=== PATIENT | female | born 1940 | race Caucasian/White ===

== ENCOUNTER 2019-02-04 02:00 | Observation (INO) | payer MEDICARE, OTHER ==
--- NOTE | 2019-02-04 02:20 | ED ---
Skin/Abscess/FB HPI - General Chief complaint: Skin/Abscess/Foreign Body Stated complaint: Transfer From [facility] Time Seen by Provider: 02/04/19 02:06 Source: patient Mode of arrival: ambulatory Limitations: no limitations - History of Present Illness Initial comments: Patient is a pleasant 78-year-old female presents the emergency department today as a transfer from an outside facility for evaluation of left hand cellulitis. Patient was evaluated earlier in the week at an urgent care for infection of her left fourth digit, at that time that was read she was prescribed Bactrim and topical feel B [place] ointment. Patient has been compliant with treatment regimen however she's noticed progressively worsening redness and pain. Today she sought care at an outside emergency department where she was noted to have cellulitis of the finger with range of motion limited by pain, patient was given a small dose of vancomycin however due to her poor renal function the infusion was discontinued and the patient was given a dose of Ancef. At that time they did note that the redness in her finger did seem to be improving however due to the failure of outpatient oral antibiotics decision was made to admit the patient. Upon discussion with the admitting team they decided the patient needed be evaluated a facility that had a hand surgeon the patient was socially transferred to our facility for further evaluation. - Related Data Allergies Allergy/AdvReac Type Severity Reaction Status Date / Time iodine Allergy Anaphylaxis Verified 02/04/19 02:12 Penicillins Allergy Rash/Hives Verified 02/04/19 02:12 sulfamethoxazole AdvReac Nausea Verified 02/04/19 02:12 [From Bactrim] trimethoprim [From Bactrim] AdvReac Nausea Verified 02/04/19 02:12 Review of Systems ROS Statement: Those systems with pertinent positive or pertinent negative responses have been documented in the HPI. ROS Other: All systems not noted in ROS Statement are negative. Past Medical History Past Medical History: No Reported History, Renal Disease History of Any Multi-Drug Resistant Organisms: None Reported Past Surgical History: Appendectomy, Coronary Bypass/CABG, Heart Catheterization With Stent, Tubal Ligation Additional Past Surgical History / Comment(s): right rotator cuff. Past Psychological History: No Psychological Hx Reported Smoking Status: Never smoker Past Alcohol Use History: None Reported Past Drug Use History: None Reported General Exam - General Exam Comments Initial Comments: Physical Exam GENERAL: Patient is well-developed and well-nourished. Patient is nontoxic and well- hydrated and is in no distress. HENT: Normocephalic, Atraumatic. EYES: PERRL, EOMI PULMONARY: Unlabored respirations. No audible rales rhonchi or wheezing was noted. CARDIOVASCULAR: There is a regular rate and rhythm without any murmurs gallops or rubs. ABDOMEN: Soft and nontender with normal bowel sounds. SKIN: Left fourth digit with erythema extending from the tip of the finger to the MCP. There was an attempted drainage of possible felon at outside hospital there is a small incision which is bandaged with some dark venous bleeding noted : Deferred NEUROLOGIC: Hard of hearing Alert and oriented MUSCULOSKELETAL: Normal extremities with adequate strength and full range of motion. No lower extremity swelling or edema. No calf tenderness. PSYCHIATRIC: Normal psychiatric evaluation. Limitations: no limitations Limitations: no limitations Course Vital Signs 02/04/19 02:05 Temperature 98.5 F Pulse Rate 104 H Respiratory 20 Rate Blood Pressure 93/53 O2 Sat by Pulse 98 Oximetry Medical Decision Making - Medical Decision Making Patient care was discussed with the transferring physician prior to transfer, patient care was then discussed with our on-call orthopedics physician Dr. Hazel cotto who agreed that we can accept the admission and he will evaluate the patient Repeat labs were ordered At this time I will plan to admit the patient with a consult to hand surgery as well as infectious disease for further evaluation patient's agreeable to this plan - Lab Data Result diagrams: 02/04/19 02:42 02/04/19 02:42 Disposition Clinical Impression: Cellulitis of left hand Disposition: ADMITTED IP TO THIS HOSP Condition: Stable
[2019-02-04 03:00] LABS: Basophils % (A) 0 %; Eosinophils # (A) 0.1 k/uL (0-0.7); Eosinophils % (A) 1 %; HCT 31.8 % (34.0-46.0); HGB 10.6 gm/dL (11.4-16.0); Lymphocytes # (A) 1.2 k/uL (1.0-4.8); Lymphocytes % (A) 12 %; MCHC 33.2 g/dL (31.0-37.0); MCV 93.3 fL (80.0-100.0); Mean Platelet Volume 8.3; Monocytes # (A) 1.6 k/uL (0-1.0); Monocytes % (A) 16 %; Neutrophils # (A) 6.7 k/uL (1.3-7.7); Neutrophils % (A) 68 %; Platelet Count 133 k/uL (150-450); RBC 3.41 m/uL (3.80-5.40); RDW 13.9 % (11.5-15.5); WBC 9.8 k/uL (3.8-10.6)
[2019-02-04 03:04] LABS: Albumin 3.9 g/dL (3.5-5.0); Calcium 9.5 mg/dL (8.4-10.2); Potassium 3.9 mmol/L (3.5-5.1); Total Bilirubin 0.7 mg/dL (0.2-1.3); Total Protein 6.5 g/dL (6.3-8.2)
[2019-02-04] MEDS: SODIUM CHLORIDE 0.9% 1,000 ML IV SCH ×2 (03:36→15:27)
[2019-02-04] MEDS: ACETAMINOPHEN TAB 325 MG TAB PO PRN ×2 (04:18→22:08)
[2019-02-04 07:39] LABS: Glucose,Whole Blood 101 mg/dL (75-99)
--- NOTE | 2019-02-04 08:00 | P.CNOR ---
History of Present Illness - [facility] Consult date: 02/04/19 Consult reason: other (cellulitis - left 4th digit) History of present illness: The patient is a pleasant 78-year-old right-hand dominant female who was transferred from [facility] for evaluation of redness and swelling in her left ring finger. She states this has been gradually worsening over the past 4 days. She denies any injury or inciting events. She does not bite her nails. She was initially treated with oral and topical antibiotics. When this failed to show improvement, she was sent to the emergency department. She was given a dose of IV vancomycin but apparently stopped due to poor renal function. She states the redness was worse but has improved since receiving the antibiotics. She has a history of insulin-dependent diabetes and states her morning blood sugars average around 100. She denies fevers, chills or recent systemic illness. She does not smoke. Past Medical History Past Medical History: Diabetes Mellitus, Hearing Disorder / Deafness, Hyperlipidemia, Myocardial Infarction ([place]), Osteoarthritis (OA), Renal Disease, Thyroid Disorder Additional Past Medical History / Comment(s): Pace maker, type 2 , speech disturbance Last Myocardial Infarction Date:: unknown History of Any Multi-Drug Resistant Organisms: None Reported Past Surgical History: Appendectomy, Coronary Bypass/CABG, Heart Catheterization With Stent, Tubal Ligation Additional Past Surgical History / Comment(s): right rotator cuff. Past Anesthesia/Blood Transfusion Reactions: Previous Problems w/ Anesthesia Additional Past Anesthesia/Blood Transfusion Reaction / Comm: Patient was told she can't have anesthesia becuase of her heart Date of Last Stent Placement:: 2011 Past Psychological History: No Psychological Hx Reported Smoking Status: Never smoker Past Alcohol Use History: None Reported Past Drug Use History: None Reported - Past Family History Father Family Medical History: Diabetes Mellitus Additional Family Medical History / Comment(s): type 2 Mother Additional Family Medical History / Comment(s): Stroke Medications and Allergies Allergies Allergy/AdvReac Type Severity Reaction Status Date / Time iodine Allergy Anaphylaxis Verified 02/04/19 02:12 Penicillins Allergy Rash/Hives Verified 02/04/19 02:12 sulfamethoxazole AdvReac Nausea Verified 02/04/19 02:12 [From Bactrim] trimethoprim [From Bactrim] AdvReac Nausea Verified 02/04/19 02:12 Physical Examination Left hand: There is marked erythema on the dorsal aspect of the ring finger extending mcfp up the middle phalanx. There is purulence noted beneath the eponychial fold, more so on the ulnar aspect. No purulence is seen beneath the nail plate. There is no active drainage. A small wound is noted on the radial side of the eponychial fold, likely from the reported attempted ID from the outside hospital. There is no tenderness to palpation in the pulp or along the flexor sheath. She is able to actively flex and extend the digit without difficulty or signs of pain. Results - Labs Labs: Abnormal Lab Results - Last 24 Hours (Table) 02/04/19 02/04/19 02/04/19 Range/Units 02:42 02:42 07:38 RBC 3.41 L (3.80-5.40) m/uL Hgb 10.6 L (11.4-16.0) gm/dL Hct 31.8 L (34.0-46.0) % Plt Count 133 L (150-450) k/uL Monocytes # 1.6 H (0-1.0) k/uL BUN 44 H (7-17) mg/dL Creatinine 3.02 H (0.52-1.04) mg/dL POC Glucose (mg/dL) 101 H (75-99) mg/dL H & H 02/04/19 Range/Units 02:42 Hgb 10.6 L (11.4-16.0) gm/dL Hct 31.8 L (34.0-46.0) % Result Diagrams: 02/04/19 02:42 02/04/19 02:42 Assessment and Plan Assessment: This is 78-year-old [id number] female with a four-day history of left ring finger pain, redness and swelling 1. Eponychia - left ring finger 2. 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 I recommended starting her on IV clindamycin and begin soaks with warm saline several times a day. We will plan for a bedside I&D early this afternoon. The patient should remain NPO until then to retain the option to proceed with formal operative I&D if necessary. The patient expressed understanding and agreement with this plan. Thank you for allowing me to participate in the care of this patient. Champ Meléndez D.O. [facility]
[2019-02-04] MEDS ORDERED: LIDOCAINE 1% INJ 10MG/ML (20 ML MDV) SQ ONE (09:23)
[2019-02-04] MEDS: traMADol 50 MG TAB PO PRN ×3 (09:27→22:03)
[2019-02-04] MEDS: CLINDAMYCIN 600 MG in DEXTROSE 5% IN WATER 50 ML IVPB SCH ×4 (09:28→15:26)
--- NOTE | 2019-02-04 10:08 | P.CONS ---
History of Present Illness - Reason for Consult Consult date: 02/04/19 Hand cellulitis - History of Present Illness This is an 78-year-old female with a gives history of waking up one morning and having redness and edema to the left ring finger at the nail bed. This eventually progressed on his finger into the hand. She went to a clinic in [place] and was placed on Bactrim and Bactroban. She took 2 doses of Bactrim and did not have any improvement with worsening of the redness and edema and went to [facility] emergency center. She was started on vancomycin and given Ancef and then transferred to [facility] for further treatment. Patient has been seen by Dr. Meléndez and is scheduled for I&D this afternoon. He has ordered clindamycin and warm saline soaks. Patient presented with normal white count of 9.8, hemoglobin 10.6, BUN 44 and creatinine 3.0 to, blood sugar 133. Patient does have known renal disease. Blood cultures status received. Patient states that she is diabetic and her blood sugars in the morning usually run around 100. Patient does not have a speech difficulty which she states she has had since . Review of Systems All systems: negative Constitutional: Denies anorexia, Denies chills, Denies fever, Denies malaise, Denies poor appetite, Denies weakness Eyes: denies blurred vision, denies pain Ears, nose, mouth and throat: Denies dental pain, Denies headache, Denies mouth pain, Denies nasal congestion, Denies nasal discharge, Denies sore throat Cardiovascular: Denies chest pain, Denies dyspnea on exertion, Denies edema, Denies lightheadedness, Denies orthopnea, Denies shortness of breath, Denies syncope Respiratory: Denies cough, Denies cough with sputum, Denies dyspnea, Denies excessive sputum, Denies hemoptysis, Denies home oxygen, Denies respiratory infections Gastrointestinal: Denies abdominal pain, Denies diarrhea, Denies loss of appetite, Denies melena, Denies nausea, Denies vomiting Genitourinary: Denies difficulty voiding, Denies dysuria, Denies hematuria, Denies urinary frequency Musculoskeletal: Denies frequent falls, Denies gait dysfunction, Denies myalgias Integumentary: Reports color changes, Reports darkening of skin, Reports wounds, Denies pruritus, Denies rash Neurological: Denies aphasia, Denies change in mentation, Denies confusion, Denies head injury, Denies headaches, Denies numbness, Denies seizures, Denies vertigo, Denies weakness Psychiatric: Denies anxiety, Denies depression Endocrine: Denies fatigue, Denies weight change Past Medical History Past Medical History: Diabetes Mellitus, Hearing Disorder / Deafness, Hyperlipidemia, Myocardial Infarction ([place]), Osteoarthritis (OA), Renal Disease, Thyroid Disorder Additional Past Medical History / Comment(s): Pace maker, type 2 , speech disturbance Last Myocardial Infarction Date:: unknown History of Any Multi-Drug Resistant Organisms: None Reported Past Surgical History: Appendectomy, Coronary Bypass/CABG, Heart Catheterization With Stent, Tubal Ligation Additional Past Surgical History / Comment(s): right rotator cuff. Past Anesthesia/Blood Transfusion Reactions: Previous Problems w/ Anesthesia Additional Past Anesthesia/Blood Transfusion Reaction / Comm: Patient was told she can't have anesthesia becuase of her heart Date of Last Stent Placement:: 2011 Past Psychological History: No Psychological Hx Reported Smoking Status: Never smoker Past Alcohol Use History: None Reported Additional Past Alcohol Use History / Comment(s): The patient is a lifelong nonsmoker. She denies any marijuana or illicit drug use. She denies any alcohol use. She lives at home with her daughter and son-in-law. There are 4 dogs in the home. She denies any recent travel. She denies any hobbies using her hands. Past Drug Use History: None Reported - Past Family History Father Family Medical History: Diabetes Mellitus Additional Family Medical History / Comment(s): type 2 Mother Additional Family Medical History / Comment(s): Stroke Medications and Allergies Home Medications Medication Instructions Recorded Confirmed Type Atorvastatin [Lipitor] 80 mg PO HS 02/04/19 02/04/19 History Clopidogrel Bisulfate [Plavix] 75 mg PO DAILY 02/04/19 02/04/19 History Furosemide [Lasix] 20 mg PO BID 02/04/19 02/04/19 History Insulin Detemir [Levemir Flextouch] 30 unit SQ BID 02/04/19 02/04/19 History Levothyroxine Sodium [Synthroid] 112 mcg PO DAILY 02/04/19 02/04/19 History Linagliptin [Tradjenta] 5 mg PO DAILY 02/04/19 02/04/19 History Metoprolol Tartrate [Lopressor] 100 mg PO BID 02/04/19 02/04/19 History Midodrine HCl [ProAmantine] 2.5 mg PO TID 02/04/19 02/04/19 History Moxifloxacin HCl 400 mg PO DAILY #10 tab 02/04/19 Rx Potassium Chloride ER [K-Dur 10] 10 meq PO BID 02/04/19 02/04/19 History Allergies Allergy/AdvReac Type Severity Reaction Status Date / Time iodine Allergy Anaphylaxis Verified 02/04/19 10:16 Penicillins Allergy Rash/Hives Verified 02/04/19 10:16 sulfamethoxazole AdvReac Nausea Verified 02/04/19 10:16 [From Bactrim] trimethoprim [From Bactrim] AdvReac Nausea Verified 02/04/19 10:16 Physical Exam Vitals: Vital Signs Temp Pulse Pulse Resp BP BP BP 02/04/19 07:00 98.1 F 88 17 125/62 02/04/19 04:33 98.6 F 88 20 126/74 02/04/19 03:40 98.8 F 102 H 16 109/68 02/04/19 02:05 98.5 F 104 H 20 93/53 Pulse Ox 02/04/19 07:00 96 02/04/19 04:33 97 02/04/19 03:40 97 02/04/19 02:05 98 Intake and Output 02/03/19 02/04/19 02/04/19 22:59 06:59 14:59 Intake Total 150 Balance 150 Intake: Intake, IV Titration 150 Amount Sodium Chloride 0.9% 1, 150 000 ml @ 75 mls/hr IV . [id number] [facility] Rx#:[id number] Other: # Voids 1 Weight 86.183 kg Gen: This is an 78-year-old female. She is resting in bed and appears comfortable and in no acute distress. HEENT: Head is atraumatic, normocephalic. Pupils equal, round. Sclerae is anicteric. Conjunctiva pink. Mucous members of the mouth are slightly dry. Dentition is in poor order for age. No thrush noted. NECK: Supple. No JVD. No lymphadenopathy. No thyromegaly. LUNGS: Clear to auscultation. No wheezes or rhonchi. No intercostal retractions. HEART: Regular rate and rhythm. No murmur. ABDOMEN: Soft. Bowel sounds are present. No masses. No tenderness. EXTREMITIES: No pedal edema. No calf tenderness. Dorsalis pedis +2 bilaterally. To the left ring finger. There is significant erythema on the dorsal aspect extending from the tip to the middle phalanx. There is purulence at the nail bed with erythema around the nail bed. No drainage noted. No foul odor. NEUROLOGICAL: Patient is awake, alert and oriented x3. Cranial nerves 2 through 12 are grossly intact. Results Results: Laboratory Results WBC 9.8 k/uL (3.8-10.6) 02/04/19 02:42 RBC 3.41 m/uL (3.80-5.40) L 02/04/19 02:42 Hgb 10.6 gm/dL (11.4-16.0) L 02/04/19 02:42 Hct 31.8 % (34.0-46.0) L 02/04/19 02:42 MCV 93.3 fL (80.0-100.0) 02/04/19 02:42 MCH 31.0 pg (25.0-35.0) 02/04/19 02:42 MCHC 33.2 g/dL (31.0-37.0) 02/04/19 02:42 RDW 13.9 % (11.5-15.5) 02/04/19 02:42 Plt Count 133 k/uL (150-450) L 02/04/19 02:42 Neutrophils % 68 % 02/04/19 02:42 Lymphocytes % 12 % 02/04/19 02:42 Monocytes % 16 % 02/04/19 02:42 Eosinophils % 1 % 02/04/19 02:42 Basophils % 0 % 02/04/19 02:42 Neutrophils # 6.7 k/uL (1.3-7.7) 02/04/19 02:42 Lymphocytes # 1.2 k/uL (1.0-4.8) 02/04/19 02:42 Monocytes # 1.6 k/uL (0-1.0) H 02/04/19 02:42 Eosinophils # 0.1 k/uL (0-0.7) 02/04/19 02:42 Basophils # 0.0 k/uL (0-0.2) 02/04/19 02:42 Sodium 140 mmol/L (137-145) 02/04/19 02:42 Potassium 3.9 mmol/L (3.5-5.1) 02/04/19 02:42 Chloride 104 mmol/L (98-107) 02/04/19 02:42 Carbon Dioxide 25 mmol/L (22-30) 02/04/19 02:42 Anion Gap 11 mmol/L 02/04/19 02:42 BUN 44 mg/dL (7-17) H 02/04/19 02:42 Creatinine 3.02 mg/dL (0.52-1.04) H 02/04/19 02:42 Est GFR (CKD-EPI)AfAm 16 (>60 ml/min/1.73 sqM) 02/04/19 02:42 Est GFR (CKD-EPI)NonAf 14 (>60 ml/min/1.73 sqM) 02/04/19 02:42 Glucose 96 mg/dL (74-99) 02/04/19 02:42 POC Glucose (mg/dL) 101 mg/dL (75-99) H 02/04/19 07:38 POC Glu Extension Forester ID Nakul Rodrigueza 02/04/19 07:38 Calcium 9.5 mg/dL (8.4-10.2) 02/04/19 02:42 Total Bilirubin 0.7 mg/dL (0.2-1.3) 02/04/19 02:42 AST 17 U/L (14-36) 02/04/19 02:42 ALT 24 U/L (9-52) 02/04/19 02:42 Alkaline Phosphatase 125 U/L (38-126) 02/04/19 02:42 Total Protein 6.5 g/dL (6.3-8.2) 02/04/19 02:42 Albumin 3.9 g/dL (3.5-5.0) 02/04/19 02:42 CBC & Chem 7: 02/04/19 02:42 02/04/19 02:42 Labs: Abnormal Lab Results - Last 24 Hours (Table) 02/04/19 02/04/19 02/04/19 Range/Units 02:42 02:42 07:38 RBC 3.41 L (3.80-5.40) m/uL Hgb 10.6 L (11.4-16.0) gm/dL Hct 31.8 L (34.0-46.0) % Plt Count 133 L (150-450) k/uL Monocytes # 1.6 H (0-1.0) k/uL BUN 44 H (7-17) mg/dL Creatinine 3.02 H (0.52-1.04) mg/dL POC Glucose (mg/dL) 101 H (75-99) mg/dL Assessment and Plan Plan: This is an 78-year-old female who presents to the hospital with eponychia. Patient is currently on clindamycin and Rocephin will be added for gram-negative coverage. Blood cultures status received. Patient is scheduled for I&D this afternoon and hopefully cultures will be obtained at that time which will help with antibiotic choices. Continue supportive care. Further recommendations as patient progresses. The above dictated assessment and findings were discussed with Dr. Castaneda. The impression and plan of care have been directed as dictated. Sadie Dickey nurse practitioner acting as scribe for Dr. Castaneda.
[2019-02-04 11:06] LABS: Glucose,Whole Blood 118 mg/dL (75-99)
[2019-02-04] MEDS: INSULIN ASPART (NovoLOG) 100 UNIT/ML VIAL SQ SCH ×3 (11:41→21:17)
--- NOTE | 2019-02-04 13:00 | P.HPIM ---
History of Present Illness This is a pleasant 78 years old female with past medical history of diabetes mellitus, hearing disorder, hyperlipidemia, coronary artery disease status post pacemaker , osteoarthritis, hypothyroidism,. She is a patient of Dr. Drummond. Patient presents because of left ring finger cellulitis of 4 days duration. Patient has creatinine of 3.0, as per patient and family at bedside patient has a stage IV CKD and she follow up with patient information coordinator that appear , Also she has chronic shoulder arthralgia and she sees a specialist for injection therapy however he is off and she has appointment in 3 weeks. However patient denies chest pain or dyspnea. No fever.On admissions Vitas looks stable. Patient is afebrile. CBC and BMP were reviewed showing mild anemia with 10.6, creatinine of 3.0 and unknown baseline.She's been evaluated by orthopedic and plan for I and D today afternoon Review of Systems CONSTITUTIONAL: No fever, no malaise, no fatigue. HEENT: No recent visual problems or hearing problems. Denied any sore throat. CARDIOVASCULAR: No orthopnea, PND, no palpitations, no syncope. PULMONARY: No shortness of breath, no cough, no hemoptysis. GASTROINTESTINAL: No diarrhea, no nausea, no vomiting, no abdominal pain. Normoactive bowel sounds. NEUROLOGICAL: No headaches, no weakness, no numbness. HEMATOLOGICAL: Denies any bleeding or petechiae. GENITOURINARY: Denies any burning micturition, frequency, or urgency. MUSCULOSKELETAL/RHEUMATOLOGICAL: Denies any joint pain, swelling, or any muscle pain. ENDOCRINE: Denies any polyuria or polydipsia. Past Medical History Past Medical History: Diabetes Mellitus, Hearing Disorder / Deafness, Hy perlipidemia, Myocardial Infarction (ND), Osteoarthritis (OA), Renal Disease, Thyroid Disorder Additional Past Medical History / Comment(s): Pace maker, type 2 , speech distur bance Last Myocardial Infarction Date:: unknown History of Any Multi-Drug Resistant Organisms: None Reported Past Surgical History: Appendectomy, Coronary Bypass/CABG, Heart Catheterization With Stent, Tubal Ligation Additional Past Surgical History / Comment(s): right rotator cuff. Past Anesthesia/Blood Transfusion Reactions: Previous Problems w/ Anesthesia Additional Past Anesthesia/Blood Transfusion Reaction / Comment(s): Patient was told she can't have anesthesia becuase of her heart Date of Last Stent Placement:: 2011 Past Psychological History: No Psychological Hx Reported Smoking Status: Never smoker Past Alcohol Use History: None Reported Additional Past Alcohol Use History / Comment(s): The patient is a lifelong nonsmoker. She denies any marijuana or illicit drug use. She denies any alcohol use. She lives at home with her daughter and son-in-law. There are 4 dogs in the home. She denies any recent travel. She denies any hobbies using her hands. Past Drug Use History: None Reported - Past Family History Father Family Medical History: Diabetes Mellitus Additional Family Medical History / Comment(s): type 2 Mother Additional Family Medical History / Comment(s): Stroke Medications and Allergies Home Medications Medication Instructions Recorded Confirmed Type Atorvastatin [Lipitor] 80 mg PO HS 02/04/19 02/04/19 History Clopidogrel Bisulfate [Plavix] 75 mg PO DAILY 02/04/19 02/04/19 History Furosemide [Lasix] 20 mg PO BID 02/04/19 02/04/19 History Insulin Detemir [Levemir Flextouch] 30 unit SQ BID 02/04/19 02/04/19 History Levothyroxine Sodium [Synthroid] 112 mcg PO DAILY 02/04/19 02/04/19 History Linagliptin [Tradjenta] 5 mg PO DAILY 02/04/19 02/04/19 History Metoprolol Tartrate [Lopressor] 100 mg PO BID 02/04/19 02/04/19 History Midodrine HCl [ProAmantine] 2.5 mg PO TID 02/04/19 02/04/19 History Potassium Chloride ER [K-Dur 10] 10 meq PO BID 02/04/19 02/04/19 History Allergies Allergy/AdvReac Type Severity Reaction Status Date / Time iodine Allergy Anaphylaxis Verified 02/04/19 10:16 Penicillins Allergy Rash/Hives Verified 02/04/19 10:16 sulfamethoxazole AdvReac Nausea Verified 02/04/19 10:16 [From Bactrim] trimethoprim [From Bactrim] AdvReac Nausea Verified 02/04/19 10:16 Physical Exam Vitals: Vital Signs Temp Pulse Pulse Resp BP BP BP 02/04/19 07:00 98.1 F 88 17 125/62 02/04/19 04:33 98.6 F 88 20 126/74 02/04/19 03:40 98.8 F 102 H 16 109/68 02/04/19 02:05 98.5 F 104 H 20 93/53 Pulse Ox 02/04/19 07:00 96 02/04/19 04:33 97 02/04/19 03:40 97 02/04/19 02:05 98 Intake and Output 02/03/19 02/04/19 02/04/19 22:59 06:59 14:59 Intake Total 150 Balance 150 Intake: Intake, IV Titration 150 Amount Sodium Chloride 0.9% 1, 150 000 ml @ 75 mls/hr IV . [id number] [facility] Rx#:[id number] Other: Voiding Method Toilet # Voids 1 Weight 86.183 kg GENERAL: The patient is alert and oriented x3, not in any acute distress. Well developed, well nourished. HEENT: Pupils are round and equally reacting to light. EOMI. No scleral icterus. No conjunctival pallor. Normocephalic, atraumatic. No pharyngeal erythema. No thyromegaly. CARDIOVASCULAR: S1 and S2 present. No murmurs, rubs, or gallops. PULMONARY: Chest is clear to auscultation, no wheezing or crackles. ABDOMEN: Soft, nontender, nondistended, normoactive bowel sounds. No palpable organomegaly. MUSCULOSKELETAL: No joint swelling or deformity. -EXTREMITIES: No cyanosis, clubbing, or pedal edema. Left little finger is swollen, red and tender in the distal half of it. With this pronounced in the proximal half NEUROLOGICAL: Gross neurological examination did not reveal any focal deficits. SKIN: No rashes. Results CBC & Chem 7: 02/04/19 02:42 02/04/19 02:42 Labs: Abnormal Lab Results - Last 24 Hours (Table) 02/04/19 02/04/19 02/04/19 Range/Units 02:42 02:42 07:38 RBC 3.41 L (3.80-5.40) m/uL Hgb 10.6 L (11.4-16.0) gm/dL Hct 31.8 L (34.0-46.0) % Plt Count 133 L (150-450) k/uL Monocytes # 1.6 H (0-1.0) k/uL BUN 44 H (7-17) mg/dL Creatinine 3.02 H (0.52-1.04) mg/dL POC Glucose (mg/dL) 101 H (75-99) mg/dL 02/04/19 Range/Units 11:05 RBC (3.80-5.40) m/uL Hgb (11.4-16.0) gm/dL Hct (34.0-46.0) % Plt Count (150-450) k/uL Monocytes # (0-1.0) k/uL BUN (7-17) mg/dL Creatinine (0.52-1.04) mg/dL POC Glucose (mg/dL) 118 H (75-99) mg/dL Thrombosis Risk Factor Assmnt - Choose All That Apply Any of the Below Risk Factors Present?: Yes Each Risk Factor Represents 3 Points: Age 75 years or older Thrombosis Risk Factor Assessment Total Risk Factor Score: 3 Thrombosis Risk Factor Assessment Level: Moderate Risk Assessment and Plan Assessment: Left ring finger cellulitis. chronic kidney disease, stage IV Diabetes mellitus History of hearing difficulty Hyperlipidemia History of coronary artery disease status post pacemaker history of osteoarthritis, and shoulder pain. She follow up with specialist outpatient Hypothyroidism Plan: This is a pleasant 6 years old female who presents with left ring finger cellulitis. Continue with antibiotics. Orthopedic consult is appreciated. Plan for I and D today. Give the patient nothing by mouth with IV fluids for now. Labs and medication were reviewed.. Continue same treatment. Continue with symptomatic treatment. Resume home medication. Monitor vitals. DVT and GI prophylaxis. Further recommendations of the clinical course of the patient DVT prophylaxis: Subcutaneous heparin GI Prophylaxis: pepcid
--- NOTE | 2019-02-04 14:19 | P.PCN ---
Date of Procedure: 02/04/19 Preoperative Diagnosis: Left ring finger eponychia Postoperative Diagnosis: Left ring finger eponychia Procedure(s) Performed: Incision and drainage of left ring finger eponychia Anesthesia: local Surgeon: Champ Meléndez Estimated Blood Loss (ml): 2 Pathology: other (Aerobic and anaerobic culture swabs) Condition: stable Indications for Procedure: Patient is an 78-year-old female who failed outpatient treatment of an infection of her left ring finger. She was diagnosed with an acute eponychia. Treatment options were discussed and surgical debridement was recommended in the form of a bedside I&D. Risks and benefits were reviewed with the patient. She expressed understanding and agreement and wished to proceed with the procedure. Operative Findings: ~1cc of thick pus expressed from under the eponychial fold Description of Procedure: After informed consent obtained, a time out was performed which confirmed the patient, the procedural site and procedure to be performed. All team members expressed agreement. The left ring finger was prepped with alcohol and 10 mL of 1% lidocaine without epinephrine were injected in a digital block. The left ring finger was prepped with chlorhexidine. Sterile gloves and instruments were used in conjuction with aseptic technique. An 11 blade scalpel was used to incise the skin on the ulnar corner of the eponychial fold. The incision was opened with a mosquito hemostat. Creamy, white purulent fluid was immediately encountered. This was manually expressed from the wound. The dorsal skin over the distal phalanx was milked until no further fluid was expressed. The subcutaneous tissues were bluntly explored with a hemostat and no pockets of purulent fluid were identified. A similar incision was made on the radial corner of the eponychial fold. No purulence was identified. The central portion of the eponychium was gently elevated off the nail plate. No purulent fluid was encountered. The incisions were left open to drain. Good hemostasis was obtained with pressure. An Adaptic was placed in the eponychial incisions to prevent premature closure. A sterile dressing of 4 x 4's and gauze was applied. The patient tolerated the procedure well. We will begin soaks twice a day and a solution of warm normal saline and dilute peroxide (10:1 ratio). Sterile dressings should be reapplied after the soaks. Finger care, activity and follow up instructions were given.
[2019-02-04] MEDS: MIDODRINE 5 MG TAB PO SCH ×2 (15:26→22:09)
[2019-02-04 17:11] LABS: Glucose,Whole Blood 101 mg/dL (75-99)
[2019-02-04] MEDS: FUROSEMIDE 20 MG TAB PO SCH (17:20)
--- NOTE | 2019-02-04 18:38 | P.CON ---
Consult Note - . Consult date: 02/04/19 Assessment/Plan:: This is an 78-year-old female with a gives history of waking up one morning and having redness and edema to the left ring finger at the nail bed. This eventually progressed on his finger into the hand. She went to a clinic in [place] and was placed on Bactrim and Bactroban. She took 2 doses of Bactrim and did not have any improvement with worsening of the redness and edema and went to [facility] emergency center. She was started on vancomycin and given Ancef and then transferred to [facility] for further treatment. Patient has been seen by Dr. Meléndez and is scheduled for I&D this afternoon. He has ordered clindamycin and warm saline soaks. Patient presented with normal white count of 9.8, hemoglobin 10.6, BUN 44 and creatinine 3.0 to, blood sugar 133. Patient does have known renal disease. Blood cultures status received. Patient states that she is diabetic and her blood sugars in the morning usually run around 100. Patient does not have a speech difficulty which she states she has had since . Please see the consult note as dictated by nurse practitioner Mrs. Sadie Dickey. This pleasant 78-year-old woman is noted to have the acute difficulty with the left hand fourth finger at the nail bed. There is noted she's been seen by orthopedic surgery and will have an incision and drainage of this site. There appears to be the infection of the space about the nail which will be incised and drained. Given the acuity this is likely a superficial infection with incision and drainage should do well. However it's often polymicrobial in nature and will add Rocephin to the clindamycin. It is likely she'll be discharged home tomorrow, moxifloxacin 40 mg once a day dispense center pharmacy for follow-up. Local wound care is as per the orthopedic surgeon. Local dressing should be applied. The hand should be elevated while she is at rest. Hopefully once the nerve block wears off she will not have severe pain, and will be addressed before her discharge tomorrow. I agree with the evaluation, assessment and plan as dictated by nurse practitioner Mrs. Sadie Dickey.
[2019-02-04 20:26] LABS: Glucose,Whole Blood 150 mg/dL (75-99)
[2019-02-04] MEDS ORDERED: ATORVASTATIN 80 MG TAB PO SCH (21:00)
[2019-02-04] MEDS: INSULIN DETEMIR (LEVEMIR) 100 UNIT/ML SYR SQ SCH (21:17)
[2019-02-04] MEDS: FAMOTIDINE 20 MG/2 ML VIAL IV SCH (22:09)
[2019-02-04] MEDS: METOPROLOL TARTRATE 50 MG TAB PO SCH (22:09)
[2019-02-04] MEDS: POTASSIUM CHLORIDE ER 10 MEQ TAB.ER.PRT PO SCH (22:09)
[2019-02-05] MEDS: CLINDAMYCIN 600 MG in DEXTROSE 5% IN WATER 50 ML IVPB SCH ×4 (01:03→11:06)
[2019-02-05] MEDS: traMADol 50 MG TAB PO PRN ×2 (03:53→13:32)
[2019-02-05] MEDS ORDERED: LEVOTHYROXINE 112 MCG TAB PO SCH (06:30)
[2019-02-05 07:15] LABS: Glucose,Whole Blood 56 mg/dL (75-99)
[2019-02-05 07:40] LABS: Glucose,Whole Blood 65 mg/dL (75-99)
[2019-02-05 08:11] LABS: Glucose,Whole Blood 78 mg/dL (75-99)
[2019-02-05 08:19] VITALS: RESP 17
[2019-02-05] MEDS ORDERED: CLOPIDOGREL 75 MG TAB PO SCH (09:00)
[2019-02-05] MEDS ORDERED: HEPARIN SODIUM,PORCINE 5,000 UNIT/ML 1 ML VIAL SQ SCH (09:00)
[2019-02-05] MEDS: SODIUM CHLORIDE 0.9% 1,000 ML IV SCH (09:51)
[2019-02-05] MEDS: INSULIN ASPART (NovoLOG) 100 UNIT/ML VIAL SQ SCH ×2 (09:51→13:26)
[2019-02-05] MEDS: INSULIN DETEMIR (LEVEMIR) 100 UNIT/ML SYR SQ SCH (09:53)
[2019-02-05] MEDS: METOPROLOL TARTRATE 50 MG TAB PO SCH (09:54)
[2019-02-05] MEDS: MIDODRINE 5 MG TAB PO SCH (09:54)
[2019-02-05] MEDS: POTASSIUM CHLORIDE ER 10 MEQ TAB.ER.PRT PO SCH (09:54)
[2019-02-05] MEDS: FUROSEMIDE 20 MG TAB PO SCH (09:54)
[2019-02-05] MEDS: FAMOTIDINE 20 MG/2 ML VIAL IV SCH (09:55)
--- NOTE | 2019-02-05 10:00 | P.PN ---
Subjective Progress Note Date: 02/05/19 This is an 78-year-old female who is admitted for infection of her left ring finger. Patient is status post bedside I&D. This is postoperative day #1. Patient states that her pain is well-controlled and she denies any new complaints. Patient denies any fever/chills, numbness, weakness, tingling, abdominal pain, shortness of breath or chest pain. Objective - Vital Signs Vital signs: Vital Signs Temp 99.2 F 02/05/19 07:00 Pulse 79 02/05/19 07:00 Resp 17 02/05/19 07:00 BP 115/72 02/05/19 07:00 Pulse Ox 100 02/05/19 07:00 Intake & Output 02/04/19 02/05/19 02/05/19 18:59 06:59 18:59 Intake Total 120 Balance 120 Intake: Oral 120 Other: Voiding Method Toilet # Voids 2 1 - Exam On exam patient is resting comfortably in bed in no acute distress. Dressing is removed revealing a moderate amount of bloody drainage. Incisions are open and draining a mild amount of sanguineous fluid. Sensation is intact. Neurovascular status and circulatory status are intact. - Labs CBC & Chem 7: 02/04/19 02:42 02/04/19 02:42 Labs: Abnormal Lab Results - Last 24 Hours (Table) 02/04/19 02/04/19 02/04/19 Range/Units 11:05 17:10 20:24 POC Glucose (mg/dL) 118 H 101 H 150 H (75-99) mg/dL 02/05/19 02/05/19 Range/Units 07:04 07:29 POC Glucose (mg/dL) 56 L 65 L (75-99) mg/dL Microbiology - Last 24 Hours (Table) 02/04/19 14:30 Gram Stain - Preliminary Finger - Left Fourth Wound Culture - Preliminary 02/04/19 02:42 Blood Culture - Preliminary Blood No Growth after 24 hours 02/04/19 14:30 Anaerobic Culture - Preliminary Finger - Left Fourth Assessment and Plan (1) Cellulitis of left hand Current Visit: Yes Status: Acute Code(s): L03.114 - CELLULITIS OF LEFT UPPER LIMB SNOMED Code(s): 71475664 (2) Eponychia Current Visit: Yes Status: Acute Code(s): 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 Continue warm soaks twice daily with dressing changes after each soak. 2. Cultures are pending. 3. Antibiotics per infectious disease. 4. Will continue to follow. Patient is clear for discharge from an orthopedic standpoint once antibiotics are determined.
[2019-02-05 12:01] LABS: Glucose,Whole Blood 162 mg/dL (75-99)
[2019-02-05 15:34] VITALS: BP 94/63; PULSE 64; TEMP 98.8
--- NOTE | 2019-02-05 16:57 | P.DS ---
Providers Date of admission: 02/04/19 02:20 Expected date of discharge: 02/05/19 Attending physician: Frederick Ingram MD Consults: 02/04/19 02:07 Consult Physician Urgent Consulting Provider: Champ Meléndez Consult Reason/Comments: hand cellulitis Do you want consulting provider notified?: Already Contacted 02/04/19 02:08 Consult Physician Urgent Consulting Provider: Dank Castaneda Consult Reason/Comments: hand cellulitis Do you want consulting provider notified?: Yes, Notify in am Primary care physician: [facility] Course: Ms. Suarez is an 78-year-old female with a past medical history of diabetes mellitus, hearing disorder, hyperlipidemia, coronary artery disease status pacemaker, osteoarthritis, hypothyroidism coming in with a chief complaint of l eft ring finger pain and swelling for 4 days. Patient was found to have abscess and cellulitis of the left ring finger and orthopedic surgery was consulted. Patient had I&D done on 02/04/2019. She has been started on IV antibiotics in the form of ceftriaxone and clindamycin by ID Dr. Castaneda. This morning patient was sitting comfortably in the bed has no active complaints. Patient states that her pain is well controlled and the swelling and redness have decreased compared to yesterday. Patient denies having any fevers chills or rigors. No shortness of breath or chest pain. No dysuria or hematuria. No abdominal pain nausea vomiting or diarrhea. Patient's vital signs Vital Signs Temp 99.2 F 02/05/19 07:00 Pulse 79 02/05/19 07:00 Resp 17 02/05/19 07:00 BP 115/72 02/05/19 07:00 Pulse Ox 100 02/05/19 07:00 Intake & Output 02/04/19 02/05/19 02/05/19 18:59 06:59 18:59 Intake Total 120 Balance 120 Intake: Oral 120 Other: Voiding Method Toilet # Voids 2 1 On examination: GENERAL: The patient is alert and oriented x3, not in any acute distress. Well developed, well nourished. HEENT: Pupils are round and equally reacting to light. EOMI. No scleral icterus. No conjunctival pallor. Normocephalic, atraumatic. No pharyngeal erythema. No thyromegaly. CARDIOVASCULAR: S1 and S2 present. No murmurs, rubs, or gallops. PULMONARY: Chest is clear to auscultation, no wheezing or crackles. ABDOMEN: Soft, nontender, nondistended, normoactive bowel sounds. No palpable organomegaly. MUSCULOSKELETAL: No joint swelling or deformity. -EXTREMITIES: The marked area of redness of the left ring finger appears to be normal today. The ring finger is wrapped in a guage. NEUROLOGICAL: Gross neurological examination did not reveal any focal deficits. SKIN: No rashes. DISCHARGE DIAGNOSIS Left ring finger cellulitis. chronic kidney disease, stage IV Diabetes mellitus History of hearing difficulty Hyperlipidemia History of coronary artery disease status post pacemaker History of osteoarthritis, and shoulder pain. Hypothyroidism PLAN: Patient is status post op day1- s/p I&D of the left ring finger abscess. As per ID Dr. Castaneda recommendations she can be discharged on moxifloxacin and she has also been cleared by orthopedic surgery to be discharged home. Patient's daughter at the bedside and discussed in detail regarding the importance of completing the antibiotic course and also explained to her about the wound care for her abscess. She is advised to follow-up with her primary care physician in 2-3 days and also orthopedic surgery in 1 week. Patient is being discharged home in a stable condition. More than 30 minutes spent towards the discharge of the patient. Patient Condition at Discharge: Stable Plan - Discharge Summary Discharge Rx Participant: Yes New Discharge Prescriptions: New Moxifloxacin HCl 400 mg PO DAILY #10 tab No Action Potassium Chloride ER [K-Dur 10] 10 meq PO BID Midodrine HCl [ProAmantine] 2.5 mg PO TID Metoprolol Tartrate [Lopressor] 100 mg PO BID Linagliptin [Tradjenta] 5 mg PO DAILY Levothyroxine Sodium [Synthroid] 112 mcg PO DAILY Insulin Detemir [Levemir Flextouch] 30 unit SQ BID Furosemide [Lasix] 20 mg PO BID Clopidogrel Bisulfate [Plavix] 75 mg PO DAILY Atorvastatin [Lipitor] 80 mg PO HS Discharge Medication List Atorvastatin [Lipitor] 80 mg PO HS 02/04/19 [History] Clopidogrel Bisulfate [Plavix] 75 mg PO DAILY 02/04/19 [History] Furosemide [Lasix] 20 mg PO BID 02/04/19 [History] Insulin Detemir [Levemir Flextouch] 30 unit SQ BID 02/04/19 [History] Levothyroxine Sodium [Synthroid] 112 mcg PO DAILY 02/04/19 [History] Linagliptin [Tradjenta] 5 mg PO DAILY 02/04/19 [History] Metoprolol Tartrate [Lopressor] 100 mg PO BID 02/04/19 [History] Midodrine HCl [ProAmantine] 2.5 mg PO TID 02/04/19 [History] Moxifloxacin HCl 400 mg PO DAILY #10 tab 02/04/19 [Rx] Potassium Chloride ER [K-Dur 10] 10 meq PO BID 02/04/19 [History] Follow up Appointment(s)/Referral(s): Bhanu Hernandez MD [Primary Care Provider] - 1-2 days Champ Meléndez DO [Medical Doctor] - 1 Week Activity/Diet/Wound Care/Special Instructions: Orthopedic Discharge Instructions Soak left ring finger twice a day for 5-10 minutes in solution of warm normal saline (or clean warm water) and peroxide (less than 25% peroxide). Ok to wash hands normally with soap & water. Keep covered with a dressing or band-aid. No salves/ointments/lotions. No neosporin or bacitracin. May use hand and finger as tolerated. Keep clean. Take antibiotics until completed. Follow up outpatient with Dr. Meléndez in 7-10 days -- call for appointment. Discharge Disposition: HOME SELF-CARE
== END 2019-02-05 16:40 | disposition home or self-care (01) ==
LOC: EC 02:00 → 4SSUR 02:20
PROVIDERS: ADMIT Internal Medicine; ATTEND Internal Medicine
DX: L03.012 Cellulitis of left finger (principal); L02.512 Cutaneous abscess of left hand; L03.114 Cellulitis of left upper limb; Q84.6 Other congenital malformations of nails; E11.22 Type 2 diabetes mellitus with diabetic chronic kidney disease; N18.4 Chronic kidney disease, stage 4 (severe); H91.90 Unspecified hearing loss, unspecified ear; Z95.0 Presence of cardiac pacemaker; I25.10 Atherosclerotic heart disease of native coronary artery without angina pectoris; E78.5 Hyperlipidemia, unspecified; M19.90 Unspecified osteoarthritis, unspecified site; E03.9 Hypothyroidism, unspecified; M19.019 Primary osteoarthritis, unspecified shoulder; D64.9 Anemia, unspecified; I25.2 Old myocardial infarction; R47.9 Unspecified speech disturbances; Z95.1 Presence of aortocoronary bypass graft; Z95.5 Presence of coronary angioplasty implant and graft; Z79.899 Other long term (current) drug therapy; Z79.02 Long term (current) use of antithrombotics/antiplatelets; Z79.890 Hormone replacement therapy; Z79.4 Long term (current) use of insulin; Z88.0 Allergy status to penicillin; Z88.2 Allergy status to sulfonamides; Z91.048 Other nonmedicinal substance allergy status; Z82.3 Family history of stroke
CPT/HCPCS: 26011; 96376; 96365; 96366 ×2; 96375; 96372; 99284; 80053; 85025; 87040; 87070; 87205; 87075; G0378 ×2; J1644; J2001; J0696 ×2